=== PATIENT | female | born 1950 | race Caucasian/White ===

== ENCOUNTER → 2016-07-12 | Outpatient (CLI) | payer OTHER ==
[~2016-07-12] VITALS: Ht 160 cm; Wt 67.0 kg
[~2016-07-12] MED LIST: ACTOS45 MG PO; CALCIUM600 M1 PO; CRESTOR5 MG PO; GLUCOPHAGE500 MG PO; LO-DOSE ASPIRIN81 M2 PO; PRINZIDE 20-121 EACH PO; SYNTHROID100 MCG PO; VITAMIN B-6100 MG PO; ZETIA10 MG PO
[2016-07-12 09:01] VITALS: BP 145/66
== END | disposition home or self-care (01) ==
LOC: IVINF 06-25 15:00
DX: M81.0 Age-related osteoporosis without current pathological fracture (principal)
CPT/HCPCS: J3489

== ENCOUNTER → 2017-07-25 | Outpatient (CLI) | payer OTHER ==
[~2017-07-25] VITALS: Ht 160 cm; Wt 69.5 kg
[2017-07-25 07:37] VITALS: BP 147/67
== END | disposition home or self-care (01) ==
LOC: IVINF 07-24 15:00
DX: M81.0 Age-related osteoporosis without current pathological fracture (principal); T50.995A Adverse effect of other drugs, medicaments and biological substances, initial encounter; Z88.8 Allergy status to other drugs, medicaments and biological substances
CPT/HCPCS: 96365; J3489